=== PATIENT | female | born 1995 | race Two or more races ===

== ENCOUNTER 2025-01-13 15:41 | Observation (INO) | payer BC, SELFPAY ==
[2025-01-13] VITALS (9 sets, daily range): BP systolic 110; BP diastolic 67; PULSE 126–152; RESP 19–99; TEMP 36.7; O2SAT 97–100; BMI 31.1
== END 2025-01-13 16:29 | disposition home or self-care (01) ==
PROVIDERS: Admitting Provider Specialist; PCP Registered Nurse Community Health; Visit Provider Specialist
DX: O26.892 Other specified pregnancy related conditions, second trimester (principal); Z3A.22 22 weeks gestation of pregnancy; R10.9 Unspecified abdominal pain
CPT/HCPCS: 59899

== ENCOUNTER 2025-01-17 09:02 | Emergency (ER) | payer BC, SELFPAY ==
[2025-01-17 09:10] VITALS: BP 122/76; PULSE 122; RESP 19; TEMP 38; O2SAT 96; BMI 31.1
--- NOTE | 2025-01-17 09:16 | PD.EDRME ---
Rapid Medical Screening Exam RME Arrival date/time: 01/17/25 09:02 29-year-old female presents to the emergency department today stating that she has been on antibiotics since Tuesday for UTI patient reports being approximate 23 weeks . Chief Complaint: Urogenital-Female Time Seen by Provider: 01/17/25 09:10 Vital signs: Vital Signs Temperature 100.4 F 01/17/25 09:10 Pulse Rate 122 H 01/17/25 09:10 Respiratory Rate 19 01/17/25 09:10 Blood Pressure 122/76 01/17/25 09:10 Pulse Oximetry (%) 96 01/17/25 09:10 Oxygen Delivery Method Room Air 01/17/25 09:10
[2025-01-17 09:36] LABS: Lactate (Lactic Acid) 1.3 mMol/L (0.4-2.0)
[2025-01-17 09:37] LABS: Basophils # (Auto) 0.0 Thou/mm3 (0.0-0.2); Basophils % (Auto) 0 % (0-2.5); Eosinophils # (Auto) 0.0 Thou/mm3 (0.0-0.5); Eosinophils % (Auto) 0 % (0-10); Hematocrit 33.3 % (36.0-46.0); Hemoglobin 11.0 g/dL (12.0-16.0); Immature Granulocytes Auto 0.13 Thou/mm3 (0.00-0.00); Lymphocytes # (Auto) 3.8 Thou/mm3 (1.0-4.8); Lymphocytes % (Auto) 33 % (10-50); Mean Corpuscular HGB Conc 33.0 g/dl (31.0-37.0); Mean Corpuscular Hemoglobin 28.9 pg (25.0-35.0); Mean Corpuscular Volume 87 fL (80-100); Monocytes # (Auto) 0.9 Thou/mm3 (0.0-0.8); Monocytes % (Auto) 8 % (0-12); Neutrophils # (Auto) 6.6 Thou/mm3 (1.8-7.7); Neutrophils % (Auto) 58 % (37-80); Nucleated Red Blood Cell # 0.00 Thou/mm3 (0.00-0.00); Nucleated Red Blood Cell % 0 /100 WBC (0); Platelet Count 286 Thou/mm3 (140-440); RDW Standard Deviation 41.1 fL (36.4-46.3); Red Blood Count 3.81 Miln/mm3 (4.00-5.20); White Blood Count 11.4 Thou/mm3 (3.6-11.0)
[2025-01-17 09:39] VITALS: TEMP 37.6
[2025-01-17] MEDS: SODIUM CHLORIDE 0.9% 1000 ML 1,000 ML 999 ML IV (09:39)
[2025-01-17] MEDS: ACETAMINOPHEN 500 MG TABLET 1000 MG PO (09:39)
[2025-01-17 09:42] LABS: Collection Type, Urine Clean Catch
[2025-01-17 09:47] LABS: Bacteria,Urine Rare; Bilirubin,Urine Negative (Negative); Blood,Urine Negative (Negative); Color,Urine Yellow (Lt Yel-Yel); Glucose, Urine Negative (Negative); Ketones,Urine 1+ (Negative); Leukocyte Esterase,Urine Positive (Negative); Nitrite,Urine Negative (Negative); PH,Urine 6.0 (5.0-7.0); Protein,Urine Trace (Neg - Trace); RBC,Urine 7 /hpf (0-3); Specific Gravity,Urine 1.027 (1.001-1.035); Squamous Epithelial Cell,Urine 17 /hpf (0-5); Urobilinogen,Urine 3.0 mg/dL (0.0-1.0); WBC,Urine 3 /hpf (0-5)
[2025-01-17 10:05] VITALS: BP 112/73; PULSE 103; RESP 18; TEMP 37.2; O2SAT 99
[2025-01-17 10:13] LABS: Alanine Aminotransferase 53 U/L (10-49); Albumin, Serum 3.8 gm/dL (3.5-5.0); Albumin/Globulin Ratio 1.7 (1.2-2.2); Alkaline Phosphatase 111 U/L (46-116); Anion Gap 12 (7-16); Aspartate Amino Transferase 44 U/L (0-34); BUN/Creatinine Ratio 12 Ratio (12-20); Bilirubin,Total 0.5 mg/dL (0.3-1.2); Blood Urea Nitrogen 6 mg/dL (9-23); Calcium 8.6 mg/dL (8.3-10.6); Calcium (Corrected) 8.8 mg/dL (8.5-10.1); Carbon Dioxide 19.5 mMol/L (20.0-31.0); Chloride 106 mMol/L (98-107); Creatinine (Component) 0.5 mg/dL (0.6-1.3); Estimated Creatinine Clearance 159.8 mL/min (>60); Globulin 2.3 gm/dL (2.3-3.5); Glucose 94 mg/dL (74-106); Osmolality,Calculated 271 (275-295); Potassium 3.5 mMol/L (3.4-5.1); Procalcitonin 0.14 ng/ml (0.0-0.49); Sodium 137 mMol/L (136-145); Total Protein 6.1 gm/dL (5.7-8.2); eGFR > 60 See Note
[2025-01-17 10:29] LABS: Clarity,Urine Hazy (Clear/Hazy)
[2025-01-17 10:59] VITALS: TEMP 36.9
[2025-01-17] MEDS: cefTRIAXone 2 GM in SODIUM CHLORIDE 0.9% (Popper) 50 ML IV (11:12)
[2025-01-17 11:51] VITALS: BP 108/62; PULSE 97; RESP 17; TEMP 36.6; O2SAT 96
--- NOTE | 2025-01-17 11:54 | PD.EDFEVER ---
ED Fever RME/HPI General Chief Complaint: Urogenital-Female Stated Complaint: N/V, FEVERS, CHILLS H/A RECENT UTI (+), 23 WEEEKS Time Seen by Provider: 01/17/25 09:10 Arrival date/time: 01/17/25 09:02 Limitations: no limitations RME / HPI RME / HPI Narrative: 01/17/25 09:02 29-year-old female presents to the emergency department today stating that she has been on antibiotics since Tuesday for UTI patient reports being approximate [address] LAZARO MAIN ED EVALUATION: 29 year old female who is 23 weeks gestational age presents to the ED for evaluation of fevers, chills, nausea, vomiting, abdominal discomfort, and dysuria today. The patient states she was evaluated here 4 days ago Tuesday and diagnosed with a UTI, started on Nitrofurantoin. States she has taken the medications are prescribed with not much improvement in symptoms. Denies having received IV antibiotics during previous hospital visit. No other associated symptoms reported. Related Data Home Medications ?Medication ?Instructions ?Recorded ?Confirmed vit no.95-ferrous tab PO 01/13/25 fumarate 28 mg-folic acid 800 mcg tablet () Previous Rx's ?Medication ?Instructions ?Recorded hydrocodone 5 mg-acetaminophen 325 1 tab PO BID PRN pain #10 tabs 11/20/21 mg tablet ibuprofen 800 mg tablet 800 mg PO TID PRN pain #30 tabs 11/20/21 cephalexin 500 mg capsule 500 mg PO Q6H 10 days #40 caps 01/17/25 Allergies Allergy/AdvReac Type Severity Reaction Status Date / Time No Known Allergies Allergy Verified 01/17/25 09:05 Review of Systems Review of Systems Systems Reviewed: All systems reviewed, normal except as documented Past Medical History Surgical History SURGICAL: Negative Section Social History SMOKING STATUS: Never smoker SECOND HAND EXPOSURE: No Physical Exam General Limitations: no limitations General appearance: alert and in no apparent distress Head Head exam: atraumatic, normocephalic and normal inspection Eye Eye exam: Present normal appearance, PERRL and EOMI ENT ENT exam: Present normal exam, normal oropharynx and mucous membranes moist Neck Neck exam: Present normal inspection, full ROM and trachea midline Chest Chest inspection: Present normal inspection and symmetric chest wall rise Respiratory Respiratory exam: Present normal lung sounds bilaterally Cardiovascular Cardiovascular exam: Present regular rate, normal rhythm and normal heart sounds Abdominal Exam Abdominal exam: Present soft, normal bowel sounds and other (Gravid fundus ) Extremities Exam Extremities exam: Present normal inspection and full ROM Back Exam Back exam: Present normal inspection and full ROM Neurological Exam Neurological exam: Present alert, oriented X3 and CN II-XII intact Psychiatric Psychiatric exam: Present normal affect and normal mood Skin Skin exam: Present warm, dry, intact and normal color ED Exam General Limitations: Present no limitations General appearance: Present alert and in no apparent distress Head Head exam: Present atraumatic, normocephalic and normal inspection Eye Eye exam: Present normal appearance, PERRL and EOMI ENT ENT exam: Present normal exam, normal oropharynx and mucous membranes moist Neck Neck exam: Present normal inspection, full ROM and trachea midline Chest Chest inspection: Present normal inspection and symmetric chest wall rise Respiratory Respiratory exam: Present normal lung sounds bilaterally Cardiovascular Cardiovascular exam: Present regular rate, normal rhythm and normal heart sounds Abdominal Exam Abdominal exam: Present soft, normal bowel sounds and other (Gravid fundus ) Extremities Exam Extremities exam: Present normal inspection and full ROM Back Exam Back exam: Present normal inspection and full ROM Neurological Exam Neurological exam: Present alert, oriented X3 and CN II-XII intact Psychiatric Psychiatric exam: Present normal affect and normal mood Skin Skin exam: Present warm, dry, intact and normal color Course Quality Measures Current suspected stage: ruled out (WBC minimally elevated at 11.4, lactic within normal limits, procalcitonin within normal limits ) Possible source: genitourinary Blood cultures ordered: yes Antibiotic ordered: Yes Pertinent labs: 01/17/25 09:28 Lactic Acid 1.3 mMol/L (0.4-2.0) Procalcitonin 0.14 ng/ml (0.0-0.49) sepsis Orders Category Date Time Status Bedside COVID-19 Antigen Test NOW Care 01/17/25 09:15 Completed Insert IV NOW Care 01/17/25 09:15 Completed Blood Culture (Lab) Stat Lab 01/17/25 10:07 Received CBC Stat Lab 01/17/25 09:28 Completed Comprehensive Metabolic Panel Stat Lab 01/17/25 09:28 Completed Lactate (Lactic Acid) Stat Lab 01/17/25 09:28 Completed Procalcitonin Stat Lab 01/17/25 09:28 Completed Urinalysis Stat Lab 01/17/25 09:38 Completed Urine Culture Stat Lab 01/17/25 09:38 Received Acetaminophen Tab [Tylenol ES Tab] Med 01/17/25 09:15 Discontinued 1,000 mg PO X1 ONE Sodium Chloride 0.9% 1000 ml [Ns] 1,000 ml Med 01/17/25 09:15 Discontinued IV 999 mls/hr cefTRIAXone [Rocephin] 2 gm Med 01/17/25 10:47 Discontinued SODIUM CHLORIDE 0.9% (Popper) [Ns 0.9% (P)] 50 ml IV X1 Vital Signs Vital signs: Vital Signs Temperature 100.4 F 01/17/25 09:10 Pulse Rate 122 H 01/17/25 09:10 Respiratory Rate 19 01/17/25 09:10 Blood Pressure 122/76 01/17/25 09:10 Pulse Oximetry (%) 96 01/17/25 09:10 Oxygen Delivery Method Room Air 01/17/25 09:10 Pulse ox is 96% on room air which is adequate. Fever MDM Narrative MDM Narrative:: Preethi Samuels am scribing for and in the presence of Dr. Lazaro. The patient was diagnosed with a UTI 4 days ago and started on Nitrofurantoin. The patient is still experiencing symptoms. Today the urinalysis appears more normal though is currently undergoing treatment for UTI. Patient is diagnosed with a partially treated UTI and acute febrile illness. The antibiotic will be switched to Cephalexin and discharged home. Patient data External records reviewed:: [facility] previous records Clinical information provided by:: patient Social determinants that could affect healthcare access:: none Patient has the following chronic illnesses:: No chronic medical hx reported How is presenting disease/condition affected by chronic disease/condition?: no chronic disease Evaluation data The following diagnostics were reviewed and interpreted by me:: lab results Lab and/or radiology exams considered but not ordered:: none Interpretation Summary: As noted above Medications / Prescriptions Medications or Prescriptions considered but not ordered:: None Medication administrations:: Medication Administration History Discontinued Medications Acetaminophen (Acetaminophen 500 Mg Tablet) 1,000 mg PO X1 ONE Stop: 01/17/25 09:16 Last Admin: 01/17/25 09:39 Dose: 1,000 mg Documented By: VICKEY Sodium Chloride (Ns) 1,000 mls @ 999 mls/hr IV .Q1H1M ONE Stop: 01/17/25 10:15 Last Infusion: 01/17/25 10:58 Dose: Infused Documented By: Admin: 01/17/25 09:39 Dose: 999 mls/hr Documented By: VICKEY Ceftriaxone Sodium 2 gm/ (Sodium Chloride) 50 mls @ 100 mls/hr IV X1 ONE Stop: 01/17/25 11:16 Last Infusion: 01/17/25 11:43 Dose: Infused Documented By: Admin: 01/17/25 11:12 Dose: 100 mls/hr Documented By: VICKEY See above Consultations Consultation(s) initiated? (list below): No Diagnosis Fever Differential Diagnosis: fever of unknown origin, gastroenteritis, pyelonephritis, viral infection, sepsis and influenza Most likely diagnosis given after review of the tests above:: Acute febrile illness UTI, partially treated Admission Indicated Admission indicated?: not indicated Admission Request Was there a request for admission?: No Disposition Plan Disposition Plan: Discharge Discharge Attestation Discharge Attestation: The patient and all family members were given an opportunity to ask questions and understood the discharge instructions. Discharge instructions specifically effects, indications for sooner follow up or return to the emergency department, and the expected course of current diagnosis. Patient condition: Stable Discharge Plan Plan Patient Disposition: HOME (Self Care) Patient condition on transfer: Stable Prescriptions/Referrals Prescriptions/Med Rec: New cephalexin 500 mg capsule 500 mg PO Q6H 10 Days Qty: 40 0RF No Action ibuprofen 800 mg tablet 800 mg PO TID PRN (Reason: pain) Qty: 30 0RF hydrocodone-acetaminophen 5-325 mg tablet 1 tab PO BID MDD 10 PRN (Reason: pain) Qty: 10 0RF PNV no.95-ferrous fumarate-FA [] 28 mg iron- 800 mcg tablet PO Patient Comments: TAKE 1 TABLET BY MOUTH EVERY DAY Referrals: Rochelle Lopez FNP [Primary Care Provider] - In 1 week Problem List Clinical Impression: Acute febrile illness, UTI (urinary tract infection) during Patient/Caregiver Discharge Instructions Discharge Activity: activity as tolerated Education Materials: Urinary Tract Infections in Women Additional Instructions: Follow-up with your OB as scheduled. Stop Macrodantin. Take Keflex as directed. You can return to the emergency department sooner if symptoms worsen or if you notice any new, concerning issues. For pain or fever, take 1-2 Tylenol 500mg tablets every 6 hours. Print Language: Finnish Stand Alone Forms: [employer] Award Info., Work/School Release, Patient Portal Info Letter
== END 2025-01-17 12:03 | disposition home or self-care (01) ==
PROVIDERS: Nurse Practitioner Primary Care; Emergency Provider Family Medicine; PCP Registered Nurse Community Health
DX: O23.42 Unspecified infection of urinary tract in pregnancy, second trimester (principal); Z3A.23 23 weeks gestation of pregnancy
CPT/HCPCS: 36415; 80053; 81001; 83605; 84145; 85025; 87040; 87086; 87811; 96361; 96365; 99283; J0696; J7030; J7050; A9270

== ENCOUNTER 2025-03-22 09:49 | Outpatient (CLI) | payer BC, SELFPAY ==
[2025-03-22] VITALS (11 sets, daily range): BP systolic 119; BP diastolic 77; PULSE 95–130; RESP 16–98; TEMP 36.7; O2SAT 98–100; BMI 33.4
--- NOTE | 2025-03-22 09:49 | XR_ITS ---
Examination: Complete OB ultrasound greater than 14 weeks Date and time of exam: March 22, 2025, 1039 hours INDICATIONS: Pelvic contractions with labor evaluation today Findings: Viable intrauterine single fetus with single amniotic sac presentation cephalic Cardiac motion 140 bpm Placenta posterior grade 2 Medical cord insertion seen Amniotic fluid index 24.3 cm Cervix 3.9 cm Ovaries obscured by bowel gas. Composite estimated gestational age based on BPD, head circumference, abdominal circumference, femur length is 32 weeks 2 days Estimated weight 1928.5 g. Survey of intracranial anatomy, spinal anatomy, abdominal anatomy, four-chamber heart performed with no abnormalities identified. Impression: Viable intrauterine gestation cephalic presentation Estimated gestational age 32 weeks 2 days.
--- NOTE | 2025-03-22 09:49 | XR_ITS ---
Examination: Biophysical profile, ultrasound Date and time of exam: March 22, 2025, 1022 hours INDICATIONS: Labor evaluation pelvic contractions today Technique: Multiple transabdominal sonographic images of the pelvis abdomen obtained. Attention is directed to the breathing movement, gross body movement, amniotic fluid volume and tone. Findings: Amniotic fluid index 20.7 cm Total biophysical profile is 8 of 8. breathing movement is 2. Gross body movement is 2. tone is 2. Qualitative amniotic fluid volume is 2 Impression: Biophysical profile is 8 of 8.
[2025-03-22] MEDS: BETAMET ACET/BETAMET NA PH (Celestone) 6 MG/ML VIAL 12 MG IM (11:27)
== END 2025-03-22 12:36 | disposition home or self-care (01) ==
LOC: S4S1 10:04 → S4SX 10:04
PROVIDERS: Referring Provider Obstetrics & Gynecology; Visit Provider Obstetrics & Gynecology
DX: O36.8330 Maternal care for abnormalities of the fetal heart rate or rhythm, third trimester, not applicable or unspecified (principal); Z3A.32 32 weeks gestation of pregnancy
CPT/HCPCS: 59025; 76805; 76819; 96372; J0702

== ENCOUNTER 2025-03-23 11:33 | Outpatient (CLI) | payer BC, SELFPAY ==
[2025-03-23] VITALS (10 sets, daily range): BP systolic 126; BP diastolic 73; PULSE 111–130; RESP 16–98; TEMP 36.7; O2SAT 98–99; BMI 33.1
[2025-03-23] MEDS: BETAMET ACET/BETAMET NA PH (Celestone) 6 MG/ML VIAL 12 MG IM (12:13)
== END 2025-03-23 12:48 | disposition home or self-care (01) ==
LOC: CNST 11:34 → S4SX 11:34
PROVIDERS: Referring Provider Obstetrics & Gynecology; Visit Provider Obstetrics & Gynecology
DX: Z34.83 Encounter for supervision of other normal pregnancy, third trimester (principal); Z36.9 Encounter for antenatal screening, unspecified; Z3A.32 32 weeks gestation of pregnancy
CPT/HCPCS: 59025; 96372; J0702

== ENCOUNTER 2025-03-25 01:08 | Observation (INO) | payer BC, SELFPAY ==
[2025-03-25] VITALS (18 sets, daily range): BP systolic 113; BP diastolic 68–72; PULSE 79–102; RESP 18; TEMP 36.7; O2SAT 98–100; BMI 33.7
== END 2025-03-25 05:10 | disposition home or self-care (01) ==
PROVIDERS: Admitting Provider Obstetrics & Gynecology; Visit Provider Obstetrics & Gynecology
DX: O47.03 False labor before 37 completed weeks of gestation, third trimester (principal); Z3A.32 32 weeks gestation of pregnancy
CPT/HCPCS: 59025; 59899; A9270